=== PATIENT | male | born 1970 | race Caucasian/White ===

== ENCOUNTER 2018-02-11 11:45 | Emergency (ER) | payer OTHER ==
[~2018-02-11] VITALS: Ht 177.8 cm; Wt 93.0 kg
[2018-02-11] MEDS ORDERED: BENAZEPRIL HCL 10 MG TABLET ONE (13:04)
[2018-02-11 13:26] VITALS: BP 177/110
[2018-02-11] MEDS ORDERED: BENAZEPRIL HCL 10 MG TABLET PO ONE (13:30)
== END 2018-02-11 13:29 | disposition home or self-care (01) ==
LOC: ER 11:47
DX: I10 Essential (primary) hypertension (principal)
CPT/HCPCS: A4606; Z7610

== ENCOUNTER 2019-01-13 18:52 | Emergency (ER) | payer OTHER ==
[~2019-01-13] VITALS: Ht 177.8 cm; Wt 96.6 kg
[2019-01-13] MEDS ORDERED: ONDANSETRON HCL/PF 4 MG/2 ML VIAL ONE (19:24)
[2019-01-13] MEDS ORDERED: HYDROMORPHONE 1 MG/1 ML DISP.SYRIN ONE ×3 (19:24→21:11)
[2019-01-13] MEDS ORDERED: ONDANSETRON HCL/PF 4 MG/2 ML VIAL IVP ONE (19:30)
[2019-01-13] MEDS ORDERED: HYDROMORPHONE INJ 2 MG/ML DISP.SYRIN IV ONE (19:30)
[2019-01-13] MEDS ORDERED: IV NS 0.9% 1,000 ML BAG IV ONE ×3 (19:30→22:30)
--- NOTE | 2019-01-13 19:30 | NUR ---
PT BIBRA C/C SEVERE ABD PAIN SINCE THIS AM. PT ON MONITOR IN BED 10 WITH FAMILY AT BEDSIDE. WILL CONTINUE TO MONITOR.
[2019-01-13 19:31] LABS: BASOPHILS # (AUTO) 0.1 /CMM (0.0-0.2); BASOPHILS % (AUTO) 0.4 % (0.0-2.0); EOSINOPHILS % (AUTO) 0.6 % (0.0-6.0); HEMATOCRIT 49 % (39-51); HEMOGLOBIN 16.4 g/dL (13.5-17.5); LYMPHOCYTES # (AUTO) 2.3 /CMM (0.8-4.8); LYMPHOCYTES % (AUTO) 12.7 % (20.0-44.0); MEAN CORPUSCULAR HGB CONC 33 g/dl (31.0-36.0); MEAN CORPUSCULAR VOLUME 85 fL (80-96); MONOCYTES # (AUTO) 0.7 /CMM (0.1-1.30); MONOCYTES % (AUTO) 3.6 % (2.0-12.0); NEUTROPHILS # (AUTO) 15.3 /CMM (1.8-8.9); NEUTROPHILS % (AUTO) 82.7 % (43.0-81.0); RED BLOOD CELL COUNT(AUTO) 5.78 MIL/uL (4.5-6.0); WHITE BLOOD COUNT (AUTO) 18.5 K/uL (4.3-11.0)
[2019-01-13 19:37] LABS: PLATELET COUNT (AUTO) 192 /CMM (150-450)
[2019-01-13 19:45] LABS: CALCIUM, SERUM 10.1 mg/dL (8.5-10.1); CREATININE 1.4 mg/dL (0.6-1.3); POTASSIUM 3.7 mmol/L (3.5-5.1)
[2019-01-13 19:50] LABS: ALBUMIN 4.1 g/dL (3.4-5.0); BILIRUBIN,DIRECT 0.2 mg/dL (0.0-0.2); BILIRUBIN,TOTAL 1.2 mg/dL (0.2-1.0); TOTAL PROTEIN, SERUM 8.6 g/dL (6.4-8.2)
[2019-01-13] MEDS ORDERED: HYDROMORPHONE INJ 0.5 MG/0.5 ML SYRINGE IV ONE (20:00)
--- NOTE | 2019-01-13 20:08 | NUR ---
PT RETURNED FOR CT. PT TOLERATED WEL.
[2019-01-13] MEDS ORDERED: KETOROLAC TROMETHAMINE INJ 30 MG/ML VIAL IV ONE (20:30)
[2019-01-13] MEDS ORDERED: KETOROLAC TROMETHAMINE INJ 30 MG/ML VIAL ONE (20:38)
--- NOTE | 2019-01-13 20:54 | NUR ---
Dr. Eckert, urologist detention sergeant w/ [facility].
--- NOTE | 2019-01-13 20:56 | NUR ---
URINE COLLECTED AND SENT TO LAB
[2019-01-13] MEDS ORDERED: HYDROMORPHONE 1 MG/1 ML DISP.SYRIN IV ONE (21:00)
[2019-01-13] MEDS ORDERED: BENAZEPRIL HCL 10 MG TABLET PO ONE (21:00)
--- NOTE | 2019-01-13 21:06 | NUR ---
Dr. Darrin dawson.
[2019-01-13 21:09] LABS: APPEARANCE,URINE Clear (CLEAR); BILIRUBIN,URINE Negative (NEGATIVE); BLOOD, URINE Moderate Ery/uL (NEGATIVE); COLOR,URINE Yellow (YELLOW); KETONES,URINE 40 (NEGATIVE); LEUKOCYTE ESTERASE ,URINE Negative (NEGATIVE); NITRITE, URINE Negative (NEGATIVE); PROTEIN,URINE Negative (NEGATIVE); UGLUCOSE Negative (NEGATIVE); UROBILINOGEN,URINE 0.2 EU/dL (0.2)
[2019-01-13] MEDS ORDERED: BENA20TA9 PO (21:09)
[2019-01-13] MEDS ORDERED: FINA5TAB11 PO (21:11)
[2019-01-13] MEDS ORDERED: BENAZEPRIL HCL 10 MG TABLET ONE (21:11)
[2019-01-13] MEDS ORDERED: CEFTRIAXONE 1GM BAG (ER ONLY) 1 GM/50 ML PIGGYBACK IV ONE (21:30)
[2019-01-13] MEDS ORDERED: CEFTRIAXONE 1GM BAG (ER ONLY) 50 ML IV ONE (21:59)
[2019-01-13 22:02] LABS: BACTERIA,URINE Few /HPF (None Seen); SQUAMOUS EPITHELIAL CELL,UR Few /HPF (None Seen); WBC,URINE 0-2 /HPF (0-3)
[2019-01-13] MEDS ORDERED: TAMSULOSIN 0.4 MG CAP.SR.24H PO ONE (23:00)
--- NOTE | 2019-01-13 23:04 | NUR ---
CEFTRIAXONE 1G IV START TIME: 2203 END TIME: 2303
[2019-01-13] MEDS ORDERED: IV NS 0.9% 1,000 ML IV SCH (23:30)
--- NOTE | 2019-01-14 01:11 | NUR ---
[facility] ETA 0134 PT GOING TO [facility] RM 308A LAMBERT, RN [phone]
[2019-01-14 01:14] VITALS: BP 127/77
--- NOTE | 2019-01-14 01:26 | NUR ---
Update Cinthia, pt spouse on status. pt transfer to [facility].
[2019-01-14] MEDS ORDERED: HYDROMORPHONE INJ 0.5 MG/0.5 ML SYRINGE ONE (01:49)
[2019-01-14] MEDS ORDERED: HYDROMORPHONE 1 MG/1 ML DISP.SYRIN IV ONE (02:00)
--- NOTE | 2019-01-14 02:10 | NUR ---
IV removed. Catheter intact and site benign. Pressure and 4x4 applied to site. No bleeding noted.Patient does not wish to proceed with medical care recommended by Dr. LAU. Patient given information related to possible complications, up to and including , which could occur as a result of leaving the hospital at this time. Patient verbalizes understanding of risks involved due to leaving against medical advice. Patient has signed AMA form. PT AMBULATORY WITH STEADY GAIT ACCOMPANIED BY MOTHER.
[2019-01-14] MEDS ORDERED: KETOROLAC TROMETHAMINE INJ 30 MG/ML VIAL IV SCH (03:00)
== END 2019-01-14 02:14 | disposition left against medical advice (07) ==
LOC: ER 18:53
DX: N17.9 Acute kidney failure, unspecified (principal); N13.2 Hydronephrosis with renal and ureteral calculous obstruction; D72.829 Elevated white blood cell count, unspecified; I10 Essential (primary) hypertension
CPT/HCPCS: 36415; 71045-TC; 80048-TC; 80076-TC; 81000-TC; 83605-TC; 83690-TC; 85025-TC; 85730-TC; 87040-TC; 87081-TC; 87086-TC; J0696; J1170; J1885; J2405; J7030

== ENCOUNTER 2019-01-17 07:23 | Emergency (ER) | payer OTHER ==
[~2019-01-17] VITALS: Ht 177.8 cm; Wt 98.0 kg
[~2019-01-17 07:23] MED LIST: BENA20TA9 PO; FINA5TAB11 PO
[2019-01-17] MEDS ORDERED: HYDROCODONE/APAP 10/325MG 1 EA TABLET ONE (07:46)
[2019-01-17] MEDS ORDERED: ONDANSETRON 4 MG TAB.RAPDIS ONE (07:46)
[2019-01-17] MEDS ORDERED: KETOROLAC TROMETHAMINE INJ 30 MG/ML VIAL ONE (07:46)
--- NOTE | 2019-01-17 07:56 | NUR ---
patient presented to the ER bibra, c/o abd pain, alert and oriented x 4, verbally responsive and able to make needs known. on room air, breathing evenly and unlabroed. connected to the monitor. kept comfortable. will continue to monitor accordingly.
[2019-01-17] MEDS ORDERED: ONDANSETRON 4 MG TAB.RAPDIS SL ONE (08:00)
[2019-01-17] MEDS ORDERED: HYDROCODONE/APAP 10/325MG 1 EA TABLET PO ONE (08:00)
[2019-01-17] MEDS ORDERED: KETOROLAC TROMETHAMINE INJ 60 MG/2 ML VIAL IM ONE (08:00)
[2019-01-17 08:23] VITALS: BP 146/63
--- NOTE | 2019-01-17 08:24 | NUR ---
Patient discharged to home in stable condition. Written and verbal after care instructions given. Patient verbalizes understanding of instruction.IV removed. Catheter intact and site benign. Pressure and 4x4 applied to site. No bleeding noted.
== END 2019-01-17 08:23 | disposition home or self-care (01) ==
LOC: ER 07:25
DX: N20.0 Calculus of kidney (principal)
CPT/HCPCS: 96372; 99283; A4606; J1885; Q0162